=== PATIENT | male | born 1995 | race African-American/Black ===

== ENCOUNTER 2019-07-20 17:48 | Emergency (ER) | payer OTHER ==
[~2019-07-20] VITALS: Ht 182.9 cm; Wt 110.3 kg
[2019-07-20 17:49] VITALS: BP 142/74
[2019-07-20] MEDS ORDERED: KETOROLAC 60 MG/2 ML VIAL IM ONE (18:15)
[2019-07-20] MEDS ORDERED: diazePAM 10 MG TAB PO ONE (18:15)
[2019-07-20] MEDS ORDERED: ROBA750T4 PO (18:53)
[2019-07-20] MEDS ORDERED: LIDO1PAD TOP (18:53)
[2019-07-20] MEDS ORDERED: NAPR-837 PO (18:53)
== END 2019-07-20 19:05 | disposition home or self-care (01) ==
LOC: M ED 17:48
DX: M54.5 Low back pain (principal)
CPT/HCPCS: 96372; 99282; J1885